=== PATIENT | male | born 1950 | race Caucasian/White ===

== ENCOUNTER → 2021-04-06 | Day surgery (SDC) | payer MEDICARE, OTHER ==
--- NOTE | 2021-04-04 16:42 | NUR ---
PT REPORTS HE FEELS LIKE SOMEONE IS LISTENING IN ON HIM AT HIS HOME AND SEEMS UNEASY. I CONTACTED MIKAYLA COLÓN AND SHE ELANL COME DOWN AND TALK WITH HIM
[~2021-04-06] VITALS: Ht 175.3 cm; Wt 66.8 kg
[~2021-04-06] MED LIST: ESCITALOPRAM OX10 MG PO; PAROXETINE 20MG20 MG PO; PRAMIPEXOLE DI0.5 MG PO; VITAMIN D310 MC4 PO
[2021-04-06 09:19] LABS: HGB 13.9 g/dl (13.2-18.0); MCH 32.6 pg (25.0-31.0); MCHC 34.8 g/dL (32.0-36.0); MCV 93.7 fL (78.0-100.0); MPV 10.5 fL (6.0-9.5); RBC 4.27 M/uL (4.70-6.00); RDW 11.7 % (11.5-14.0); WBC 8.9 K/uL (4.0-10.5)
[2021-04-06 09:26] LABS: ALBUMIN 3.9 g/dL (3.4-5.0); BILIRUBIN - TOTAL 1.8 mg/dL (0.2-1.0); BUN/CREAT RATIO (CALC) 14.1 RATIO; CREATININE 0.64 mg/dL (0.67-1.17); POTASSIUM 3.3 mmol/L (3.5-5.1); TOTAL PROTEIN 6.9 g/dL (6.4-8.2)
== END | disposition home or self-care (01) ==
LOC: FAS 07:48
PROVIDERS: Surgery
DX: Z12.11 Encounter for screening for malignant neoplasm of colon (principal); Z86.010 Personal history of colon polyps; K21.9 Gastro-esophageal reflux disease without esophagitis; Z88.8 Allergy status to other drugs, medicaments and biological substances; J44.9 Chronic obstructive pulmonary disease, unspecified
CPT/HCPCS: 36415; 80053; J2704; J7120